=== PATIENT | female | born 1990 | race Caucasian/White ===

== ENCOUNTER 2021-02-28 21:21 | Emergency (ER) | payer MEDICAID ==
[~2021-02-28] VITALS: Ht 165.1 cm; Wt 65.8 kg
--- NOTE | 2021-02-28 21:30 | PHYS DOC ---
Past History Past Medical History: Anxiety, Depression General Adult HPI: HPI: ".... I up here to visit my son... his day... I am from [facility].. But I have get. Back pain... Have chronic back pain. This seems worse since it been here. I need as script for meds.. Not tramadol.. that does not work...and no Aripiprazole... they don't work....I .. don't have any meds with me... " Stress about he visit.. my son been staying with his grandfather..:'I hurt up here in my chest back area and all the way down in lower too..." Patient is a 30 year old female who presents with above hx and complaints of chest pain and back pain. Pt. visiting from [facility]. Patient states she did not bring any meds to treat her back pain which is a chronic condition for her. Patient denies any trauma. Patient denies any severe ill contacts in [facility] or a peer in [place]. Patient does have a history of anxiety, depression. Patient states she only smokes tobacco now and occasional marijuana. No current IV drug use. Patient is unable to localize back pain very well but appears to be primarily about T8 on down to L1 3 and 4. Muscle tenderness on palpation. No obvious midline pain with percussion overall appears to be spasmodic. Patient somewhat evasive about meds she is used to treat her back pain but states that only narcotics seem to work. Patient is somewhat evasive about where she is staying in [place]. Patient denies any problems with defecation or urination patient denies any history of cancer. Patient denies any current IV drug use. Patient denies any immunosuppression. Patient overall seems some what depressed and tearful when nurse or I attempt to get information. Basim fever social issues and emotional stresses. Patient denies any suicidal ideation patient denies any homicidal ideation. Does at times seem to exhibit narcotic seeking behaviors. Patient does give a history of fibromyalgia. Review of Systems: Review of Systems: Constitutional: Denies fever or chills Eyes: Denies change in visual acuity HENT: Denies nasal congestion or sore throat Respiratory: Denies cough or shortness of breath Cardiovascular: Denies chest pain or edema GI: Denies abdominal pain, nausea, vomiting, bloody stools or diarrhea : Denies dysuria Musculoskeletal: Complaints of back pain or joint pain Integument: Denies rash Neurologic: Denies headache, focal weakness or sensory changes Endocrine: Denies polyuria or polydipsia Lymphatic: Denies swollen glands Psychiatric: Complains of depression and anxiety. Homicidal or suicidal ideation Family History: Family History: Noncontributory to presentation Current Medications: Current Meds: See nursing for home meds Allergies: Allergies: See nursing for possible allergies Physical Exam: PE: Constitutional: Moderate acute emotional distress, non-toxic appearance. Patient crying with every question and answer.. Evasive about answer to questions. HENT: Normocephalic, atraumatic, bilateral external ears normal, oropharynx moist, no oral exudates, nose normal. [] Eyes: PERRLA, EOMI, conjunctiva normal, no discharge. [] Neck: Normal range of motion, no tenderness, supple, no stridor. [] Cardiovascular: Tachycardia heart rate regular rhythm, no murmur [] Lungs & Thorax: Bilateral breath sounds equal apex with scattered wheezes on auscultation [] Abdomen: Bowel sounds decreased, soft, no tenderness, no masses, no pulsatile masses. Mild distention Skin: Warm, dry, no erythema, no rash. Tattoos. Old injection cain. Back: Paraspinal muscle tenderness from T6-12 and L1, 2, 3 and 4 tenderness, no CVA tenderness. [] Extremities: No tenderness, no cyanosis, no clubbing, ROM intact, no edema. [] Neurologic: Alert and oriented X 3, n moves all extremities on request, does have distal sensory, no focal deficits noted. [] DTRs +2 patella and brachial. Ribs equal. Amatory health problem. Psychologic: Affect tearful anxious,, judgement normal, mood depressed. [] EKG: EKG: My interpretation of EKG shows a sinus tachycardia 100 bpm. No acute morphology [] Radiology/Procedures: Radiology/Procedures: [][address] [address] IMAGING REPORT Signed PATIENT: KAYLEN RUDOLPH ACCOUNT: [id number] : 1990 LOCATION: ER AGE: 30 SEX: F EXAM STATUS: REG ER ORD. PHYSICIAN: ALHAJI PALOMINO MD REASON: pain, ? trauma PROCEDURE: CT THORACIC SPINE WO CONTRAST STUDY: 1. CT thoracic spine without contrast 2. CT lumbar spine without contrast INDICATION: Pain. COMPARISON: None. TECHNIQUE: Axial CT imaging of the thoracic and lumbar spine performed without the use of contrast. Coronal and sagittal reformats were obtained. One or more of the following individualized dose reduction techniques were utilized for this examination: 1. Automated exposure control 2. Adjustment of the mA and/or kV according to patient size 3. Use of iterative reconstruction technique. FINDINGS: Thoracic spine: No acute fracture or traumatic malalignment. Mild sigmoid curvature. Maintained disc space height throughout the thoracic spine. Mild disc space narrowing at C5-C6. Small right paracentral protrusion at T7-T8 and smaller central protrusion at T8-T9. No evidence for relevant central canal or neural foraminal stenosis throughout the thoracic spine. Disc osteophyte complex eccentric to the left at C6-C7 could result in mild to moderate central canal narrowing. The visualized mediastinal contents and lungs are unremarkable. Lumbar spine: No acute fracture or traumatic malalignment. Mild broad dextrocurvature. No significant osseous central canal or neural foraminal stenosis. Only mild osseous neural foraminal stenosis on the left at L4-L5. Small bilateral intrarenal stones. No hydronephrosis. IMPRESSION: Thoracic spine: 1. No acute fracture or traumatic malalignment. 2. Mild scattered degenerative changes collectively greatest at C5-C6, as above. Lumbar spine: 1. No acute fracture or traumatic malalignment. 2. Incidental note made of small bilateral intrarenal stones. No hydronephrosis. Electronically signed by: ANNMARIE PATTON MD (03/01/2021 12:58 AM) [facility] DICTATED AND SIGNED BY: ANNMARIE PATTON MD DATE: 03/01/2150 CC: ALHAJI PALOMINO MD; NON,STAFF ~MTH0 0 Heart Score: C/O Chest Pain: Yes HEART Score for Chest Pain: HEART Score for Chest Pain Response (Comments) Value History Slighlty/Non-Suspicious 0 ECG Normal 0 Age < 45 0 Risk Factors 1 or 2 Risk Factors 1 Troponin < Normal Limit 0 Total 1 Risk Factors: Risk Factors: DM, Current or recent (<one month) smoker, HTN, HLP, family history of CAD, obesity. Risk Scores: Score 0 - 3: 2.5% MACE over next 6 weeks - Discharge Home Score 4 - 6: 20.3% MACE over next 6 weeks - Admit for Clinical Observation Score 7 - 10: 72.7% MACE over next 6 weeks - Early Invasive Strategies Course & Med Decision Making: Course & Med Decision Making Pertinent Labs and Imaging studies reviewed. (See chart for details) Patient is ice packs as needed. Gentle massage. Take Tylenol and ibuprofen for pain. Avoid tobacco and marijuana use. Follow-up with primary care. If having active nausea and vomiting on clear fluid diet with no milk or solids for 2 days. Return if any concerns. Follow-up primary care. Trial of lidocaine patches may be useful for the discomfort of the back Impression: 1. Complaints of exacerbation of chronic back pain 2. Complaints of exacerbation of her chronic fibromyalgia 3. Suspect social issues currently are causing exacerbation of some of her symptoms. 4. Encouraged patient stop tobacco and marijuana use 5. Does exhibit some behaviors consistent from narcotic seeking [] Dragon Disclaimer: Dragon Disclaimer: This electronic medical record was generated, in whole or in part, using a voice recognition dictation system. Departure Departure: Referrals: NON,STAFF (PCP) [place] Disclaimer This chart was dictated in whole or in part using Voice Recognition software in a busy, high-work load, and often noisy Emergency Department environment. It may contain unintended and wholly unrecognized errors or omissions. ALHAJI PALOMINO MD Feb 28, 2021 21:30
[2021-02-28] MEDS ORDERED: KETOROLAC 30 MG/ML VIAL. IVP ONE (22:00)
[2021-02-28] MEDS ORDERED: IV RINGERS SOLUTION,LACTATED 1,000 ML IV SCH (22:00)
[2021-02-28] MEDS ORDERED: ORPHENADRINE CITRATE 60 MG/2 ML VIAL. IV ONE (22:00)
--- NOTE | 2021-02-28 22:13 | RAD ---
EXAM: PA and Lateral Views of the Chest DATE: 02/28/2021 9:50 PM INDICATION: Reason: pain / Spl. Instructions: / History: COMPARISON: No Prior FINDINGS: The heart is not enlarged. Mediastinal and hilar contours are normal. No focal parenchymal airspace opacity. No pleural effusion or pneumothorax. IMPRESSION: 1. No radiographic evidence for acute cardiopulmonary process. Electronically signed by: Ramesh Cardoso MD (02/28/2021 10:10 PM) [facility]
[2021-02-28 22:32] LABS: BARBITURATES NEG (NEG); BENZODIAZEPINES NEG (NEG); CANNABINOIDS POS (NEG); COCAINE NEG (NEG); METHADONE NEG (NEG); OPIATES NEG (NEG); PHENCYCLIDINE NEG (NEG)
[2021-02-28 22:36] LABS: BACTERIA,URINE 0 /HPF (0-FEW); BILIRUBIN,URINE NEG (NEG); CLARITY,URINE CLEAR; COLOR,URINE COLORLESS; GLUCOSE,URINE NEG (NEG); NITRITE,URINE NEG (NEG); RBC,URINE 0 /HPF (0-2); SQUAMOUS EPITHELIAL CELL,UR FEW /LPF; UROBILINOGEN,URINE 0.2 mg/dL (0.2 mg/dL); WBC,URINE 0 /HPF (0-4)
[2021-02-28 22:37] LABS: AMPHETAMINE/METHAMPHETAMINE NEG (NEG)
[2021-02-28 23:23] LABS: BASO % 1 % (0-3); EOS # 0.1 x10^3/uL (0.0-0.7); EOS % 1 % (0-3); HEMATOCRIT 39.1 % (36.0-47.0); HEMOGLOBIN 13.1 g/dL (12.0-15.5); LYMPH # 1.6 x10^3/uL (1.0-4.8); LYMPH % 27 % (24-48); MEAN CORPUSCULAR HEMOGLOBIN 31 pg (25-35); MEAN CORPUSCULAR HGB CONC 34 g/dL (31-37); MEAN CORPUSCULAR VOLUME 93 fL (79-100); MONO # 0.5 x10^3/uL (0.0-1.1); MONO % 8 % (0-9); NEUT # 3.9 x10^3uL (1.8-7.7); NEUT % 64 % (31-73); PLATELET COUNT 193 x10^3/uL (140-400)
[2021-02-28 23:31] LABS: CREATININE 0.8 mg/dL (0.6-1.0); GFR 84.2; POTASSIUM 3.4 mmol/L (3.5-5.1)
[2021-02-28 23:43] LABS: ALBUMIN 3.9 g/dL (3.4-5.0); DIRECT BILIRUBIN 0.2 mg/dL (0.0-0.2); MAGNESIUM 1.9 mg/dL (1.8-2.4); TOTAL BILIRUBIN 1.1 mg/dL (0.2-1.0); TOTAL PROTEIN 6.9 g/dL (6.4-8.2)
--- NOTE | 2021-03-01 01:00 | RAD ---
STUDY: 1. CT thoracic spine without contrast 2. CT lumbar spine without contrast INDICATION: Pain. COMPARISON: None. TECHNIQUE: Axial CT imaging of the thoracic and lumbar spine performed without the use of contrast. C oronal and sagittal reformats were obtained. One or more of the following individualized dose reduction techniques were utilized for this examinat ion: 1. Automated exposure control 2. Adjustment of the mA and/or kV according to patient size 3. Use of iterative reconstruction technique. FINDINGS: Thoracic spine: No acute fracture or traumatic malalignment. Mild sigmoid curvature. Maintained disc space height thr oughout the thoracic spine. Mild disc space narrowing at C5-C6. Small right paracentral protrusion at T7-T8 and smaller central protrusion at T8-T9. No evidence for relevant central canal or neural foraminal stenosis throughout the thoracic spine. Disc osteophyte co mplex eccentric to the left at C6-C7 could result in mild to moderate central canal narrowing. The visualized mediastinal contents and lungs are unremarkable. Lumbar spine: No acute fracture or traumatic malalignment. Mild broad dextrocurvature. No significant osseous centr al canal or neural foraminal stenosis. Only mild osseous neural foraminal stenosis on the left at L4- L5. Small bilateral intrarenal stones. No hydronephrosis. IMPRESSION: Thoracic spine: 1. No acute fracture or traumatic malalignment. 2. Mild scattered degenerative changes collectively greatest at C5-C6, as above. Lumbar spine: 1. No acute fracture or traumatic malalignment. 2. Incidental note made of small bilateral intrarenal stones. No hydronephrosis. Electronically signed by: ANNMARIE PATTON MD (03/01/2021 12:58 AM) [facility]
[2021-03-01 01:35] VITALS: BP 124/76
--- NOTE | 2021-03-01 04:35 | EKG ---
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
== END 2021-03-01 01:35 | disposition home or self-care (01) ==
LOC: ER 21:21
DX: G89.29 Other chronic pain (principal); M54.5 Low back pain; M54.6 Pain in thoracic spine; M79.7 Fibromyalgia; F41.9 Anxiety disorder, unspecified; F32.9 Major depressive disorder, single episode, unspecified
CPT/HCPCS: 36415; 71046; 72128; 72131; 80048; 80076; 80307; 81001; 82550; 83690; 83735; 83880; 84443; 84484; 85025; 85379; 85610; 85730; 86140; 93005; 96361; 96374; 96375; 99285; J1885; J2360; J7120

== ENCOUNTER 2022-02-13 19:49 | Emergency (ER) | payer MEDICAID, OTHER ==
[~2022-02-13] VITALS: Ht 167.6 cm; Wt 69.4 kg
[2022-02-13 19:57] VITALS: BP 126/75
--- NOTE | 2022-02-13 20:24 | PHYS DOC ---
Past History Past Medical History: Anxiety Past Surgical History: Cancer Surgery, , Hysterectomy Alcohol Use: None Adult General Chief Complaint Chief Complaint: ABDOMINAL PAIN HPI HPI Patient is a 31-year-old female who presents with abdominal distention, and right-sided abdominal pain, 5 out of 10, dull and achy in nature with some radiation down into her mid abdomen Review of Systems Review of Systems Review of systems otherwise unremarkable except noted in HPI Allergies Allergies Allergies Coded Allergies Type Severity Reaction Last Updated Verified aripiprazole Allergy Unknown 02/28/21 Yes tramadol Allergy Unknown 02/28/21 Yes Physical Exam Physical Exam Constitutional: Well developed, well nourished, no acute distress, non-toxic appearance. [] HENT: Normocephalic, atraumatic, bilateral external ears normal, oropharynx dry, no oral exudates, nose normal. [] Eyes: conjunctiva normal, no discharge. [] Neck: Normal range of motion, no tenderness, supple, no stridor. [] Cardiovascular: Sinus tachycardia Lungs & Thorax: Bilateral breath sounds clear to auscultation [] Abdomen: soft, generalized mild tenderness with some mild distention, no rebound or guarding, no masses, no pulsatile masses. [] Skin: Warm, dry, no erythema, no rash. [] Back: No tenderness, no CVA tenderness. [] Extremities: No tenderness, no cyanosis, no clubbing, ROM intact, no edema. [] Neurologic: Alert and oriented X 3, normal motor function, normal sensory function, able to sit, stand and walk without issue no focal deficits noted. [] Psychologic: Affect normal, judgement normal, mood normal. [] Current Patient Data Vital Signs Vital Signs Date Time Temp Pulse Resp B/P (MAP) Pulse Ox O2 Delivery O2 Flow Rate FiO2 02/13/22 19:57 98.1 18 126/75 (92) Room Air EKG EKG [] Radiology/Procedures Radiology/Procedures [] Heart Score C/O Chest Pain: No Risk Factors: Risk Factors: DM, Current or recent (<one month) smoker, HTN, HLP, family history of CAD, obesity. Risk Scores: Risk Factors: DM, Current or recent (<one month) smoker, HTN, HLP, family history of CAD, obesity. Course & Med Decision Making Course & Med Decision Making Patient is a 31-year-old female who presents with abdominal pain and distention with diarrhea Vital signs not concerning. Physical exam noted above. Patient placed on the monitor with IV access established and IV fluid given Given pain and nausea medicine. Laboratory analysis not concerning. Imaging notable for hepatic steatosis with hepatomegaly and fluid noted in the colon consistent with diarrhea On reassessment patient symptoms better after resuscitation, pain and nausea medicine. Discussed all findings with patient. Discussed diet over the next couple of days and hydration. Advised to follow-up on Thursday with primary care physician update on ED visit and set up a follow-up. Gave return precautions to the ED. Patient grateful, verbalized understanding and agreed with plan of discharge. Dragon Disclaimer Dragon Disclaimer This electronic medical record was generated, in whole or in part, using a voice recognition dictation system. Departure Departure: Impression: Primary Impression: Abdominal pain Additional Impressions: Nausea Diarrhea Disposition: HOME / SELF CARE / HOMELESS Condition: STABLE Referrals: LEANA GATES MD (PCP) Patient Instructions: Diarrhea, Diet for Diarrhea, Adult, Diet for Gastroesophageal Reflux Disease, Adult, Nausea, Adult Additional Instructions: Thank you for coming into the emergency department tonight and allowing us to take care of you. Please read the attached information carefully to go over things we discussed. As discussed over the next couple of days eat a light clear diet with nothing heavy and stay well-hydrated. Please take your nausea medicine as prescribed and as needed. Please follow-up on Thursday with your primary care physician update on your ED visit and set up a follow-up. Please come back with new or concerning symptoms as discussed. Problem Qualifiers MARÍA QUINTEROS MD Feb 13, 2022 20:24
[2022-02-13] MEDS ORDERED: ONDANSETRON PF 4 MG/2 ML VIAL. IVP ONE (20:30)
[2022-02-13] MEDS ORDERED: HYDROmorphone PF 2 MG/ML VIAL IVP ONE ×2 (20:30→22:00)
[2022-02-13] MEDS ORDERED: IOHEXOL 300 MG/ML 75 ML VIAL. IV ONE (20:30)
--- NOTE | 2022-02-13 20:46 | EKG ---
[facility] ED [facility] [place] [address] Test Date: 2022-02-13 Test Time: 20:36:22 Pat Name: KAYLEN RUDOLPH Department: Room: Gender: F Senior Audit Manager: ALLAN : 1990 Requested By: MARÍA QUINTEROS Order Number: [id number] Reading MD: Juan Mcrae Measurements Intervals [place] Rate: 98 P: 54 WI: 140 QRS: 69 QRSD: 78 T: 57 QT: 342 QTc: 438 Interpretive Statements SINUS RHYTHM NORMAL ECG Electronically Signed On 02-21-2022 14:19:43 CDT by Juan Mcrae
[2022-02-13 20:55] LABS: BASO % 1 % (0-3); EOS # 0.1 x10^3/uL (0.0-0.7); EOS % 1 % (0-3); HEMATOCRIT 35.6 % (36.0-47.0); LYMPH % 19 % (24-48); MEAN CORPUSCULAR HEMOGLOBIN 32 pg (25-35); MEAN CORPUSCULAR HGB CONC 34 g/dL (31-37); MEAN CORPUSCULAR VOLUME 94 fL (79-100); MONO # 0.6 x10^3/uL (0.0-1.1); MONO % 11 % (0-9); NEUT # 3.7 x10^3uL (1.8-7.7); NEUT % 69 % (31-73); PLATELET COUNT 154 x10^3/uL (140-400); RED BLOOD COUNT 3.79 x10^6/uL (3.50-5.40); RED CELL DISTRIBUTION WIDTH 14.3 % (11.5-14.5); WHITE BLOOD COUNT 5.4 x10^3/uL (4.0-11.0)
[2022-02-13 21:05] LABS: CALCIUM 8.6 mg/dL (8.5-10.1); CREATININE 0.6 mg/dL (0.6-1.0); GFR 116.6; POTASSIUM 3.9 mmol/L (3.5-5.1)
[2022-02-13 21:11] LABS: ALBUMIN 3.5 g/dL (3.4-5.0); ALBUMIN/GLOBULIN RATIO 1.2 (1.0-1.7); MAGNESIUM 1.9 mg/dL (1.8-2.4); TOTAL BILIRUBIN 0.4 mg/dL (0.2-1.0); TOTAL PROTEIN 6.4 g/dL (6.4-8.2)
--- NOTE | 2022-02-13 21:33 | RAD ---
Study: XR CHEST 1V Indication: Cardiac workup. Comparison: 02/28/2021 Findings: The cardiomediastinal silhouette and carlos are within normal limits. No localized airspace opacity, pl eural effusion or pneumothorax. Impression: No acute radiographic abnormality of the chest. No relevant change from the 02/28/2021 comparison. Electronically signed by: ANNMARIE PATTON MD (02/13/2022 9:30 PM) [facility]
--- NOTE | 2022-02-13 21:36 | RAD ---
Exam: CT of abdomen and pelvis with contrast INDICATION: Right upper quadrant and right flank pain, diarrhea TECHNIQUE: Sequential axial images through the abdomen and pelvis obtained following the administrati on of 75 mL of Omni 300 IV contrast. Sagittal and coronal reformatted images were reconstructed from the axial data and reviewed. Exposure: One or more of the following in the visualized dose reduction techniques were utilized for this examination: 1. Automated exposure control 2. Adjustment of the MA and/or KV according to patient size 3. Use of iterative of reconstructive technique Comparisons: None FINDINGS: Heart size is normal. No pericardial effusion. Visualized lung bases are clear. No pleural effusion. Diffuse hepatic steatosis. Spleen, pancreas, gallbladder and adrenals are unremarkable. No perinephric inflammation or hydronephrosis. No renal or ureteral calculi are identified. Bladder is decompressed not well evaluated. Uterus is absent. No abnormal adnexal mass. Moderate amount of stool is noted in the colon. Appendix is normal. Small bowel is unremarkable. Stom ach is moderately distended. No free intra-abdominal air or fluid. No obstruction. Abdominal aorta has normal course caliber. Abdominal vasculature is patent. No enlarged abdominal lymph nodes are identified. No suspicious osseous lesions or acute fractures. IMPRESSION: 1. Hepatic steatosis with mild hepatomegaly. Correlate with LFTs. 2. Fluid noted throughout the colon, consistent with history of diarrhea Electronically signed by: Jeremías Cota MD (02/13/2022 9:34 PM) [facility]
[2022-02-13] MEDS ORDERED: LOPERAMIDE 2 MG CAPSULE PO ONE (22:00)
[2022-02-13] MEDS ORDERED: IV RINGERS SOLUTION,LACTATED 1,000 ML IV ONE (22:00)
[2022-02-13 22:02] LABS: CLARITY,URINE CLEAR; COLOR,URINE YELLOW; GLUCOSE,URINE NEG (NEG); UROBILINOGEN,URINE 0.2 mg/dL (0.2 mg/dL)
[2022-02-13 22:03] LABS: BACTERIA,URINE MOD /HPF (0-FEW); NITRITE,URINE NEG (NEG); SQUAMOUS EPITHELIAL CELL,UR MOD /LPF
[2022-02-13] MEDS ORDERED: ONDANSETRON 4MG ODT 4TABLET STARTPACK. PO ONE (23:00)
[2022-02-13] MEDS ORDERED: oxyCODONE/APAP 5/325 1 TAB TABLET PO ONE (23:00)
== END 2022-02-13 23:22 | disposition home or self-care (01) ==
LOC: ER 19:49
DX: R19.7 Diarrhea, unspecified (principal); R10.84 Generalized abdominal pain; R11.0 Nausea; F41.9 Anxiety disorder, unspecified; Z98.890 Other specified postprocedural states; Z90.710 Acquired absence of both cervix and uterus; Z88.8 Allergy status to other drugs, medicaments and biological substances
CPT/HCPCS: 36415; 71045; 74177; 80053; 81001; 83690; 83735; 85025; 87086; 93005; 96361; 96374; 96375; 96376; 99285; J1170; J2405; J7120; Q0162